=== PATIENT | female | born 1950 | race Native Hawaiian/Other Pacific Islander ===

== ENCOUNTER 2018-10-09 16:22 | Emergency (ER) | payer MEDICARE ==
[2018-10-09 16:22] VITALS: BMI 21.9
[2018-10-09 16:32] VITALS: RESP 18
[2018-10-09] MEDS ORDERED: Sodium Chloride 0.9% 1,000 ML IV ONE (16:54)
[2018-10-09] MEDS ORDERED: Sodium Chloride 0.9% 1,000 ML ONE (17:38)
[2018-10-09 17:41] LABS: BASO % 0.4 % (0.0-2.0); EOS % 0.8 % (0.0-4.0); HEMOGLOBIN 13.6 g/dL (11.0-16.0); LYMPH # 1.3 K/uL (1.0-4.3); LYMPH % 26.2 % (20.0-40.0); MEAN CORPUSCULAR HEMOGLOBIN 28.6 pg (27.0-31.0); MEAN CORPUSCULAR HGB CONC 33.3 g/dL (33.0-37.0); MEAN PLATELET VOLUME 7.8 fL (7.2-11.7); MONO # 0.6 K/uL (0.0-0.8); MONO % 11.3 % (0.0-10.0); NEUT % 61.3 % (50.0-75.0); NRBC % 0.1 % (0.0-2.0); RBC 4.75 Mil/uL (3.80-5.20); RED CELL DISTRIBUTION WIDTH 13.5 % (11.5-14.5); WHITE BLOOD COUNT 4.9 K/uL (4.8-10.8)
--- NOTE | 2018-10-09 17:47 | RAD ---
HISTORY: SOB COMPARISON: Chest x-ray performed 06/17/16 TECHNIQUE: Chest, one view. FINDINGS: LUNGS: No focal consolidation. Please note that chest x-ray has limited sensitivity for the detection of pulmonary masses. PLEURA: No significant pleural effusion identified. No definite pneumothorax . CARDIOVASCULAR: Heart size appears within normal limits. OSSEOUS STRUCTURES: Degenerative changes of the spine. Surgical anchors are again seen overlying the left humeral head likely due to prior rotator cuff repair. VISUALIZED UPPER ABDOMEN: Unremarkable. OTHER FINDINGS: None. IMPRESSION: No focal consolidation.
[2018-10-09 17:52] LABS: ALB/GLOB RATIO 1.4 (1.0-2.1); ALBUMIN 4.1 g/dL (3.5-5.0); ALT/SGPT 21 U/L (9-52); AST/SGOT 37 U/L (14-36); BLOOD UREA NITROGEN 13 mg/dL (7-17); CALCIUM 8.3 mg/dl (8.6-10.4); GFR NON-AFRICAN AMERICAN > 60
--- NOTE | 2018-10-09 18:02 | C.PDOC ---
History Of Present Illness 68 year old female presents to the ED complaining of cough, congestion, and weakness for 5 days. Reports she had diarrhea yesterday and nausea and vomiting today. Denies any abdominal pain. Denies sick contacts. Time Seen by Provider: 10/09/18 16:47 Chief Complaint (Nursing): Flu-like Symptoms History Per: Patient History/Exam Limitations: no limitations Onset/Duration Of Symptoms: Days (5) Current Symptoms Are (Timing): Still Present Associated Symptoms: Sore Throat, Cough, Nasal Congestion, Nausea, Vomiting, Diarrhea. denies: Fever, Chills Past Medical History Reviewed: Historical Data, Nursing Documentation, Vital Signs Vital Signs: Last Vital Signs Temp 98.2 F 10/09/18 16:28 Pulse 67 10/09/18 16:28 Resp 18 10/09/18 16:28 BP 130/82 10/09/18 16:28 Pulse Ox 99 10/09/18 16:28 - Medical History PMH: Anxiety, HTN, Hypercholesterolemia Denies: Chronic Kidney Disease Surgical History: Cholecystectomy - [facility] COLONOSCOPY (08/27/13) PHYSICAL THERAPY NEC (11/04/14) Family History: States: No Known Family Hx - Social History Hx Tobacco Use: No Hx Alcohol Use: No Hx Substance Use: No - Immunization History Hx Tetanus Toxoid Vaccination: No Hx Influenza Vaccination: No Hx Pneumococcal Vaccination: No Review Of Systems Except As Marked, All Systems Reviewed And Found Negative. Constitutional: Positive for: Other (fatigue ) ENT: Positive for: Nose Congestion Respiratory: Positive for: Cough Gastrointestinal: Positive for: Nausea, Vomiting Physical Exam - Physical Exam Appears: Non-toxic, No Acute Distress Skin: Warm, Dry, No Rash Head: Atraumatic, Normacephalic Eye(s): bilateral: Normal Inspection, PERRL, EOMI Ear(s): Bilateral: Normal Nose: Normal Oral Mucosa: Moist Throat: Normal, No Erythema, No Exudate Neck: Supple Chest: Symmetrical Cardiovascular: Rhythm Regular Respiratory: Normal Breath Sounds, No Rales, No Rhonchi, No Wheezing Gastrointestinal/Abdominal: Soft, No Tenderness Neurological/Psych: Oriented x3, Normal Speech Gait: Steady ED Course And Treatment - Laboratory Results Result Diagrams: 10/09/18 17:30 10/09/18 17:30 ECG: Interpreted By Me, Viewed By Me ECG Rhythm: Sinus Rhythm ECG Interpretation: No Acute Changes Interpretation Of ECG: Normal intervals, normal axis. No ST/T wave abnormalities Rate From EC O2 Sat by Pulse Oximetry: 99 (RA) Pulse Ox Interpretation: Normal - Other Rad CXR X-Ray: Viewed By Me, Read By Radiologist Interpretation: Accession No. : [id number]. Patient Name / ID : MELIZA HUBER / [id number]. Exam Date : 10/09/2018 17:02:46 ( Approved ). Study Comment : Sex / Age : F / 68Y. Creator : Lilian Macias. Dictator : Carol Chavez MD. Aeronautical Project Engineer : Material Handling Technician : Carol Chavez MD. Approver2 : Report Date : 10/09/2018 17:04:52. My Comment : . HISTORY: SOB. COMPARISON: Chest x-ray performed 06/17/16. TECHNIQUE: Chest, one view. FINDINGS: LUNGS: No focal consolidation. Please note that chest x-ray has limited sensitivity for the detection of pulmonary masses. PLEURA: No significant pleural effusion identified. No definite pneumothorax . CARDIOVASCULAR: Heart size appears within normal limits. OSSEOUS STRUCTURES: Degenerative changes of the spine. Surgical anchors are again seen overlying the left humeral head likely due to prior rotator cuff repair. VISUALIZED UPPER ABDOMEN: Unremarkable. OTHER FINDINGS: None. IMPRESSION: No focal consolidation. Medical Decision Making Medical Decision Making: Assessment: viral illness Plan - EKG - CXR - Bloodwork - UA - Pepcid 20mg IVP - Zofran 4mg IVP Patient states improvement on re-assessment. Patient consumed a meal in ER and states nausea and vomiting has resolved. No fever noted. Patient will be discharged home and was advised to follow up with Dr. Plata, BRANDON, as discussed in 2 days. Disposition Counseled Patient/Family Regarding: Studies Performed, Diagnosis, Need For Followup, Rx Given - Disposition Referrals: Susan Plata MD [Staff Provider] - Disposition: HOME/ ROUTINE Disposition Time: 19:09 Condition: STABLE Additional Instructions: follow up with your doctor within 2 days call to make an appointment take medications as prescribed return to ER if symptoms worsens or progress Prescriptions: Benzonatate [Tessalon Perles] 100 mg PO BID PRN #14 tab PRN Reason: Cough And Congestion Famotidine [Pepcid] 20 mg PO BID #20 tab Naproxen [Naprosyn] 500 mg PO BID PRN #10 tab PRN Reason: Pain, Moderate (4-7) Ondansetron ODT [Zofran ODT] 4 mg PO TID PRN #12 odt PRN Reason: Nausea/Vomiting Instructions: Cough in Adults, Hypokalemia (DC), Nausea and Vomiting, Adult, Muscle and Bone Pain (DC) Forms: [facility] (Yakut), General Discharge Instructions - Clinical Impression Clinical Impression: Viral illness, Vomiting - Scribe Statement The provider has reviewed the documentation as recorded by the Bishop Banuelos All medical record entries made by the Misaelibkolton were at my direction and personally dictated by me. I have reviewed the chart and agree that the record accurately reflects my personal performance of the history, physical exam, medical decision making, and the department course for this patient. I have also personally directed, reviewed, and agree with the discharge instructions and disposition.
[2018-10-09 18:31] LABS: SQUAMOUS EPITHIAL < 1 /hpf (0-5); URINE BILIRUBIN NEGATIVE (NEGATIVE); URINE BLOOD NEGATIVE (NEGATIVE); URINE CLARITY Clear (Clear); URINE COLOR Yellow (YELLOW); URINE GLUCOSE (UA) NORMAL (Normal); URINE LEUKOCYTE ESTERASE NEG Leu/uL (Negative); URINE PROTEIN NEGATIVE (NEGATIVE); URINE UROBILINOGEN NORMAL mg/dL (0.2-1.0)
[2018-10-09] MEDS ORDERED: Potassium Chloride 20 mEq ER Tab PO ONE (19:20)
[2018-10-09 19:25] VITALS: BP 130/77; PULSE 66; TEMP 98.7; O2SAT 98
[2018-10-10] MEDS ORDERED: Potassium Chloride 20 mEq ER Tab PO SCH (10:00)
--- NOTE | 2018-10-12 08:12 | CARD ---
APPROVED REPORT Date of service: 10/09/2018 EKG Measurement Heart [id number] <Conclusion> Normal sinus rhythm Normal ECG
== END 2018-10-09 19:30 | disposition home or self-care (01) ==
LOC: C.ER 16:22
DX: B34.9 Viral infection, unspecified (principal); R11.10 Vomiting, unspecified; I10 Essential (primary) hypertension; E78.00 Pure hypercholesterolemia, unspecified; F41.9 Anxiety disorder, unspecified
CPT/HCPCS: 71045; 80053; 81001; 83735; 84484; 85025; 93005; 96361; 96374; 96375; 99284; J1885; J2405; J7030

== ENCOUNTER 2019-01-15 12:46 | Outpatient (CLI) | payer MEDICARE | END 2019-01-15 12:47 | disposition home or self-care (01) | LOC: C.MAMMO 12:46 ==

== ENCOUNTER 2019-01-22 09:38 | Outpatient (CLI) | payer MEDICARE | END 2019-01-22 09:39 | disposition home or self-care (01) | LOC: C.LAB 09:38 | DX: M35.9 Systemic involvement of connective tissue, unspecified (principal) ==